=== PATIENT | male | born 1965 | race Caucasian/White ===

== ENCOUNTER 2018-11-13 02:41 | Emergency (ER) | payer OTHER ==
[~2018-11-13] VITALS: Ht 193 cm; Wt 136.1 kg
[2018-11-13 07:20] VITALS: BP 123/86
[2018-11-13] MEDS ORDERED: HYDROcodone-ACET 10/325MG TAB PO ONE ×2 (07:45→08:00)
[2018-11-13] MEDS ORDERED: methylPREDNISolone SOD SUCC 125 MG/2 ML VL IM ONE (11:15)
[2018-11-13] MEDS ORDERED: cefTRIAXone SOD 1,000 MG VL IM ONE (11:15)
== END 2018-11-13 11:32 | disposition home or self-care (01) ==
LOC: ER 02:49
DX: S30.22XA Contusion of scrotum and testes, initial encounter (principal); W22.8XXA Striking against or struck by other objects, initial encounter; Y93.89 Activity, other specified; Y99.8 Other external cause status; Y92.89 Other specified places as the place of occurrence of the external cause
CPT/HCPCS: 76870; 96372; 99284; J0696; J2930

== ENCOUNTER 2018-11-21 01:23 | Emergency (ER) | payer OTHER ==
[~2018-11-21] VITALS: Ht 193 cm; Wt 136.1 kg
[2018-11-21 02:05] LABS: Basophils # (auto) 0 uL; Basophils % (auto) 0.4 % (0.0-2.0); Eosinophils # (auto) 0.1 uL; Eosinophils % (auto) 1.4 % (0.0-7.0); Hematocrit 39.6 % (41.0-53.0); Hemoglobin 13.6 g/dL (13.5-17.5); Lymphocytes # (auto) 1.3 uL; Lymphocytes % (auto) 19.5 % (10.0-50.0); Mean Corpuscular Hemoglobin 30.7 pg (28.0-32.0); Mean Corpuscular Hgb Conc. 34.4 g/dL (32.0-36.0); Mean Corpuscular Volume 89.3 fL (80.0-100.0); Monocytes # (auto) 0.6 uL; Monocytes % (auto) 9.5 % (0.0-12.0); Neutrophils # (auto) 4.7 uL; Neutrophils % (auto) 69.2 % (37.0-80.0); Nucleated Red Blood Cells % 0.1 %; Platelet Count (auto) 302 10^3/uL (140-450); Red Blood Cells 4.43 10^6/uL (4.5-5.90); Red Cell Distribution Width 12.7 % (11.8-14.3); White Blood Cell 6.7 10^3/uL (4.4-10.8)
[2018-11-21 02:15] LABS: Calcium 8.6 mg/dL (8.5-10.1); Magnesium 2.3 mg/dL (1.6-2.6); Potassium 4.5 mmol/L (3.5-5.1)
[2018-11-21 02:16] LABS: INR 0.93 (0.9-1.15); Partial Thromboplastin Time 28.7 sec (23.78-33.04)
[2018-11-21 02:17] LABS: BUN/Creatinine Ratio 9.5
[2018-11-21 02:20] LABS: Bilirubin, Total 0.6 mg/dL (0.2-1.0); Total Protein 7.8 g/dL (6.4-8.2)
[2018-11-21 02:47] LABS: Urine Bacteria FEW /hpf (None Seen); Urine Blood TRACE /uL (Negative); Urine Hyaline Cast FEW /lpf (0 - 2); Urine Mucus FEW (None Seen); Urine Specific Gravity 1.022 (1.001-1.035); Urine WBC 2 /hpf (0 - 3)
[2018-11-21 08:45] VITALS: BP 131/80
[2018-11-21] MEDS: HYDROcodone-ACET 10/325MG TAB PO ONE ×2 (08:45→09:05)
== END 2018-11-21 09:09 | disposition home or self-care (01) ==
LOC: ER 01:25
DX: E86.0 Dehydration (principal); R51 Headache
CPT/HCPCS: 36415; 70450; 80053; 81001; 83735; 85025; 85610; 85730